=== PATIENT | male | born 1960 | race Caucasian/White ===

== ENCOUNTER → 2017-09-26 | Outpatient (CLI) | payer MEDICARE ==
[2017-09-26 11:49] LABS: ANION GAP 14 (5-19); BLOOD UREA NITROGEN 10 mg/dL (7-20); CALCIUM 9.6 mg/dL (8.4-10.2); CARBON DIOXIDE 25 mmol/L (22-30); CHLORIDE 103 mmol/L (98-107); GLUCOSE 107 mg/dL (75-110); POTASSIUM 4.5 mmol/L (3.6-5.0); SODIUM 141.6 mmol/L (137-145)
== END ==
LOC: OD 10:42
PROVIDERS: ATTEND Family Medicine
DX: E87.5 Hyperkalemia (principal)
CPT/HCPCS: 36415; 80048

== ENCOUNTER 2017-12-24 14:07 | Emergency (ER) | payer MEDICARE ==
[2017-12-24] MEDS ORDERED: CLINDAMYCIN 900 MG/D5W RTU 900 MG/50 ML RTUPB IV ONE (15:13)
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
[2017-12-24 16:22] LABS: ABSOLUTE BASOPHILS # (AUTO) 0.1 10^3/uL (0.0-0.2); ABSOLUTE EOSINOPHILS # (AUTO) 0.1 10^3/uL (0.0-0.6); ABSOLUTE LYMPHOCYTES (AUTO) 1.6 10^3/uL (0.5-4.7); ABSOLUTE MONOCYTES (AUTO) 0.5 10^3/uL (0.1-1.4); EOSINOPHILS % (AUTO) 1.4 % (0-6); HEMATOCRIT 37.8 % (37.9-51.0); LYMPHOCYTES % (AUTO) 21.7 % (13-45); MEAN CORPUSCULAR HEMOGLOBIN 31.2 pg (27.0-33.4); MEAN CORPUSCULAR HGB CONC 34.4 g/dL (32.0-36.0); MEAN CORPUSCULAR VOLUME 91 fl (80-97); MONOCYTES % (AUTO) 7.4 % (3-13); PLATELET COUNT 389 10^3/uL (150-450); RED BLOOD COUNT 4.17 10^6/uL (4.35-5.55); RED CELL DISTRIBUTION WIDTH 13.5 % (11.5-14.0); SEGMENTED NEUTROPHILS % (AUTO) 68.5 % (42-78); TOTAL CELLS COUNTED % (AUTO) 100 %; WHITE BLOOD COUNT 7.2 10^3/uL (4.0-10.5)
[2017-12-24 16:47] LABS: ALANINE AMINOTRANSFERASE 39 U/L (21-72); ALBUMIN 4.2 g/dL (3.5-5.0); ALKALINE PHOSPHATASE 51 U/L (38-126); ANION GAP 13 (5-19); ASPARTATE AMINO TRANSFERASE 26 U/L (17-59); BILIRUBIN,DIRECT 0.2 mg/dL (0.0-0.4); BILIRUBIN,TOTAL 0.4 mg/dL (0.2-1.3); BLOOD UREA NITROGEN 18 mg/dL (7-20); C-REACTIVE PROTEIN 8.6 mg/L (<10.0); CALCIUM 9.5 mg/dL (8.4-10.2); CARBON DIOXIDE 22 mmol/L (22-30); CHLORIDE 99 mmol/L (98-107); GLUCOSE 91 mg/dL (75-110); POTASSIUM 5.8 mmol/L (3.6-5.0); SODIUM 133.6 mmol/L (137-145); TOTAL PROTEIN 6.8 g/dL (6.3-8.2)
[2017-12-24 16:59] LABS: ERYTHROCYTE SEDIMENTATION RATE 14 mm/hr (0-20)
[2017-12-24] MEDS ORDERED: HYDROCODONE/ACETAMINOPHEN 5-325 MG (6 TAB/ER DISP) PO PRN ×2 (18:32→19:29)
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
[2017-12-24 18:59] VITALS: BP 124/64
== END 2017-12-24 18:38 | disposition home or self-care (01) ==
LOC: ER 14:07
DX: S61.402D Unspecified open wound of left hand, subsequent encounter (principal); W32.0XXD Accidental handgun discharge, subsequent encounter
CPT/HCPCS: 99283; 36415; 87040; 85025; 85652; 86140; 80053; A9270

== ENCOUNTER 2018-01-03 00:29 | Emergency (ER) | payer MEDICARE ==
[2018-01-03] MEDS ORDERED: OXYCODONE-ACETAMINOPHEN 5-325 MG TABLET PO ONE (02:17)
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
[2018-01-03 02:36] LABS: ABSOLUTE EOSINOPHILS # (AUTO) 0.1 10^3/uL (0.0-0.6); ABSOLUTE LYMPHOCYTES (AUTO) 1.1 10^3/uL (0.5-4.7); ABSOLUTE MONOCYTES (AUTO) 0.7 10^3/uL (0.1-1.4); ABSOLUTE NEUT (AUTO) 9.1 10^3/uL (1.7-8.2); BASOPHILS % (AUTO) 0.3 % (0-2); EOSINOPHILS % (AUTO) 0.6 % (0-6); HEMATOCRIT 29.3 % (37.9-51.0); HEMOGLOBIN 10.4 g/dL (13.5-17.0); MEAN CORPUSCULAR HGB CONC 35.6 g/dL (32.0-36.0); MEAN CORPUSCULAR VOLUME 90 fl (80-97); MONOCYTES % (AUTO) 6.5 % (3-13); PLATELET COUNT 325 10^3/uL (150-450); RED BLOOD COUNT 3.26 10^6/uL (4.35-5.55); RED CELL DISTRIBUTION WIDTH 13.3 % (11.5-14.0); SEGMENTED NEUTROPHILS % (AUTO) 82.6 % (42-78); TOTAL CELLS COUNTED % (AUTO) 100 %
[2018-01-03 02:51] LABS: ANION GAP 9 (5-19); BLOOD UREA NITROGEN 11 mg/dL (7-20); CALCIUM 8.5 mg/dL (8.4-10.2); CARBON DIOXIDE 24 mmol/L (22-30); CHLORIDE 104 mmol/L (98-107); GLUCOSE 101 mg/dL (75-110); POTASSIUM 4.2 mmol/L (3.6-5.0); SODIUM 137.1 mmol/L (137-145)
--- NOTE | 2018-01-03 03:06 | RADIOLOGY REPORT (SQ) ---
EXAM DESCRIPTION: XR FINGERS COMPLETED DATE/TME: 01/03/2018 02:20 CLINICAL HISTORY: 57 years, Male, fifth digit swelling COMPARISON: None. FINDINGS/IMPRESSION: 3 views of the left hand. K wire fixation of comminuted fracture involving the fifth middle phalanx. Comminuted minimally displaced fracture involving the shaft of the left fifth proximal phalanx. Soft tissue swelling of the fifth digit. Soft tissue swelling of the distal left fourth digit with comminuted tuft fracture of the fourth distal phalanx. No definite subcutaneous air. Normal osseous mineralization. 2010 [employer]- All Rights Reserved
[2018-01-03 05:37] VITALS: BP 134/78
[2018-01-03] MEDS ORDERED: HYDROCODONE/ACETAMINOPHEN 5-325 MG (6 TAB/ER DISP) PO PRN (05:57)
[2018-01-03] MEDS ORDERED: AMOXICILLIN TR/POT CLAVULANATE 500-125 MG TAB PO ONE (06:01)
== END 2018-01-03 06:10 | disposition home or self-care (01) ==
LOC: ER 00:29
DX: M79.645 Pain in left finger(s) (principal); G89.18 Other acute postprocedural pain; R50.9 Fever, unspecified; S61.207D Unspecified open wound of left little finger without damage to nail, subsequent encounter; W34.00XD Accidental discharge from unspecified firearms or gun, subsequent encounter; Z87.891 Personal history of nicotine dependence
CPT/HCPCS: 99284; 36415; 85025; 85652; 86140; 80048; 73140; A9270 ×3

== ENCOUNTER 2018-01-08 02:48 | Emergency (ER) | payer MEDICARE ==
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
[2018-01-08 04:48] VITALS: BP 128/70
== END 2018-01-08 04:47 | disposition home or self-care (01) ==
LOC: ER 02:48
DX: G89.18 Other acute postprocedural pain (principal); M79.89 Other specified soft tissue disorders; F17.200 Nicotine dependence, unspecified, uncomplicated
CPT/HCPCS: 99282